=== PATIENT | female | born 2000 | race Caucasian/White ===

== ENCOUNTER 2020-12-12 16:36 | Emergency (ER) | payer OTHER ==
[2020-12-12 17:12] VITALS: BP 108/67; PULSE 88; TEMP 98.1; BMI 28.5
[2020-12-12 18:36] LABS: EPI CELLS >36 /uL (0-25.1); HYALINE CASTS 2 /uL (0-3.1); PH,URINE 5.5 (5.0-8.0); URINE APPEARANCE CLEAR; URINE BACTERIA 390 /uL (0-1359); URINE BILIRUBIN NEGATIVE (NEGATIVE); URINE COLOR YELLOW; URINE GLUCOSE (UA) NEGATIVE (NEGATIVE); URINE KETONE 2+ (NEGATIVE); URINE LEUK ESTERASE 1+ (NEGATIVE); URINE NITRITE NEGATIVE (NEGATIVE); URINE PROTEIN NEGATIVE (NEGATIVE); URINE RBC 4 /uL (0-23.9); URINE WBC 25 /uL (0-25.8)
== END 2020-12-12 18:43 | disposition home or self-care (01) ==
LOC: JER 16:36
DX: N30.00 Acute cystitis without hematuria (principal)
CPT/HCPCS: 81003; 87086; 99283-25

== ENCOUNTER 2021-08-13 12:30 | Inpatient (IN) | payer OTHER ==
[2021-08-13] MEDS ORDERED: PROMETHAZINE HCL 25 MG/1 ML VIAL IVPUSH ONE (13:22)
[2021-08-13] MEDS ORDERED: BUTORPHANOL TARTRATE 1 MG/ML VIAL IVPUSH PRN (13:22)
[2021-08-13] MEDS ORDERED: DEXTROSE 5%-LACTATED RINGERS 1,000 ML IV SCH ×2 (13:30→16:15)
[2021-08-13 13:58] VITALS: BMI 35.5
[2021-08-13] MEDS ORDERED: AMPICILLIN SODIUM 2 GM VIAL ONE (13:59)
[2021-08-13] MEDS ORDERED: SODIUM CHLORIDE 100 ML IVPB ONE ×2 (13:59→17:31)
[2021-08-13] MEDS: ELECTROLYTE-148 SOLN 1,000 ML IV SCH (14:00)
[2021-08-13] MEDS ORDERED: AMPICILLIN - 2 GM in SODIUM CHLORIDE 100 ML IVPB ONE (14:20)
[2021-08-13 15:29] LABS: BASO % 0.2 % (0-2.0); EOS % 0.4 % (0-4.5); HEMATOCRIT 30.6 % (32.4-45.2); HEMOGLOBIN 10.1 GM/dL (10.7-15.3); MCHC 33.1 g/dl (32.0-36.0); MEAN CELL VOLUME 78.5 fl (80-96); MONO % 7.3 % (3.8-10.2); NEUT % 82.1 % (42.8-82.8); PLATELET COUNT 257 10^3/uL (134-434); RDW 16.1 % (11.6-15.6); WHITE BLOOD COUNT 11.5 K/mm3 (4.0-10.0)
[2021-08-13 15:32] LABS: INR 1.01 (0.83-1.09); PROTHROMBIN TIME (PATIENT) 11.3 SEC (9.7-13.0)
[2021-08-13 15:42] LABS: CALCIUM 8.3 mg/dL (8.5-10.1)
[2021-08-13 15:43] LABS: BLOOD UREA NITROGEN 6.2 mg/dL (7-18)
[2021-08-13 15:46] LABS: CREATININE 0.5 mg/dL (0.55-1.3)
[2021-08-13] MEDS ORDERED: OXYTOCIN 30 UNITS in 0.9% NS 30 UNIT/500 ML INFUS.BAG IVPB SCH (16:00)
[2021-08-13 16:37] LABS: HIV INTERPRETATION NEGATIVE (NEGATIVE)
[2021-08-13] MEDS ORDERED: AMPICILLIN SODIUM 1 GM VIAL ONE ×2 (17:31→22:38)
[2021-08-13] MEDS: AMPICILLIN - 1 GM in SODIUM CHLORIDE 100 ML IVPB SCH ×2 (18:07→22:30)
[2021-08-13] MEDS ORDERED: BUTORPHANOL TARTRATE 2 MG/ML VIAL ONE (23:13)
[2021-08-13] MEDS ORDERED: PROMETHAZINE HCL 25 MG/1 ML VIAL ONE (23:13)
[2021-08-14] MEDS: ELECTROLYTE-148 SOLN 1,000 ML IV SCH (01:00)
[2021-08-14] MEDS ORDERED: OXYTOCIN 20 UNITS in 0.9% NS 20 UNIT/1,000 ML INFUS.BAG IV ONE (02:15)
[2021-08-14] MEDS ORDERED: LIDOCAINE HCL 1% PRESERVATIVE FREE - 30ML VIAL ONE (02:25)
[2021-08-14] MEDS ORDERED: BENZOCAINE 28 GM HEMORRHOIDAL OINTMENT TP PRN (04:03)
[2021-08-14] MEDS ORDERED: BENZOCAINE 20% 57 GM BOTTLE TP PRN (04:03)
[2021-08-14] MEDS ORDERED: WITCH HAZEL 50% (TUCKS) 40 PAD/JAR PAD TP PRN (04:03)
[2021-08-14] MEDS ORDERED: IBUPROFEN 600 MG TABLET (FP) PO PRN (04:03)
[2021-08-14] MEDS ORDERED: oxyCODONE HCL 5 MG TABLET PO PRN (04:03)
[2021-08-14] MEDS ORDERED: METHYLERGONOVINE MALEATE 0.2 MG/1 ML AMP IM PRN (04:03)
[2021-08-14] MEDS ORDERED: BISACODYL 10 MG SUPP.RECT RC PRN (04:03)
[2021-08-14] MEDS ORDERED: OXYTOCIN 20 UNITS in 0.9% NS 20 UNIT/1,000 ML INFUS.BAG IV SCH (04:15)
[2021-08-14 04:16] LABS: VENOUS BASE EXCESS -7.6 mmol/L (-2-2); VENOUS O2 SATURATION 42.4 % (70-80); VENOUS PCO2 48.9 mmHg (38-52); VENOUS PH 7.228 (7.310-7.410)
[2021-08-14 04:19] LABS: ARTERIAL BLD GAS O2 SATURATION 20.5 % (95-98); ARTERIAL BLOOD GAS BASE EXCESS -8.4 mmol/L (-2-2)
[2021-08-14 04:21] LABS: ARTERIAL BLOOD GAS PO2 19.8 mmHg (80-100); ARTERIAL BLOOD GAS pH 7.143 (7.350-7.450)
[2021-08-14] MEDS: ACETAMINOPHEN 325 MG TABLET (FP) PO PRN (05:38)
[2021-08-14] MEDS: PRENATAL VITAMINS W/ FOLIC ACID TABLET (FP) PO SCH (09:42)
[2021-08-14] MEDS: FERROUS SO4 325 MG TABLET (FP) PO SCH ×2 (09:43→18:49)
[2021-08-14 16:20] LABS: BASO % 0.1 % (0-2.0); EOS % 0.2 % (0-4.5); HEMATOCRIT 25.4 % (32.4-45.2); HEMOGLOBIN 8.1 GM/dL (10.7-15.3); LYMPH % 8.7 % (8-40); MCH 24.9 pg (25.7-33.7); MCHC 31.9 g/dl (32.0-36.0); MEAN CELL VOLUME 78.1 fl (80-96); MONO % 10.3 % (3.8-10.2); NEUT % 80.7 % (42.8-82.8); PLATELET COUNT 233 10^3/uL (134-434); RBC 3.25 M/mm3 (3.60-5.2); RDW 16.3 % (11.6-15.6)
[2021-08-15 07:08] LABS: BASO % 0.1 % (0-2.0); EOS % 0.8 % (0-4.5); HEMATOCRIT 25.3 % (32.4-45.2); HEMOGLOBIN 8.3 GM/dL (10.7-15.3); LYMPH % 18.5 % (8-40); MEAN CELL VOLUME 78.9 fl (80-96); MEAN PLT VOLUME 7.9 fl (7.5-11.1); MONO % 8.6 % (3.8-10.2); PLATELET COUNT 220 10^3/uL (134-434); RBC 3.21 M/mm3 (3.60-5.2); RDW 16.4 % (11.6-15.6)
[2021-08-15] MEDS: PRENATAL VITAMINS W/ FOLIC ACID TABLET (FP) PO SCH (10:01)
[2021-08-15] MEDS: FERROUS SO4 325 MG TABLET (FP) PO SCH ×2 (10:01→18:45)
[2021-08-15] MEDS: ACETAMINOPHEN 325 MG TABLET (FP) PO PRN (10:01)
[2021-08-15] MEDS ORDERED: diphenhydrAMINE HCL 25 MG CAPSULE (FP) PO PRN (13:34)
[2021-08-15] MEDS ORDERED: SENNOSIDES/DOCUSATE COMBO (SENNA PLUS) TABLET (UD) PO PRN (22:00)
[2021-08-16] MEDS: PRENATAL VITAMINS W/ FOLIC ACID TABLET (FP) PO SCH (10:44)
[2021-08-16] MEDS: FERROUS SO4 325 MG TABLET (FP) PO SCH (10:44)
[2021-08-16 17:06] VITALS: BP 111/74; PULSE 88; TEMP 98.3
== END 2021-08-16 17:20 | disposition home or self-care (01) | DRG 560 ==
LOC: JLDR 12:30 → J3W 08-14 04:58
PROVIDERS: ADMIT Obstetrics & Gynecology; ATTEND Obstetrics & Gynecology
PROC: 10E0XZZ Delivery of Products of Conception, External Approach (ICD-10-PCS; principal; 2021-08-14)
DX: O24.420 Gestational diabetes mellitus in childbirth, diet controlled (principal); O99.820 Streptococcus B carrier state complicating pregnancy; O98.113 Syphilis complicating pregnancy, third trimester; O77.0 Labor and delivery complicated by meconium in amniotic fluid; Z3A.39 39 weeks gestation of pregnancy; Z37.0 Single live birth
CPT/HCPCS: 36415; 36600; 59409; 80048; 82803; 82962; 85025; 85610; 85730; 86593; 86780; 86850; 86900; 86901; 87389; C9803; U0003; U0005